=== PATIENT | female | born 1965 | race Caucasian/White ===

== ENCOUNTER → 2022-08-31 11:47 | Outpatient (BNVA) | payer OTHER, SELFPAY | PROVIDERS: PCP Family Medicine; Visit Provider Family Medicine | DX: Z00.00 Encounter for general adult medical examination without abnormal findings (principal); E03.9 Hypothyroidism, unspecified; E78.5 Hyperlipidemia, unspecified | CPT/HCPCS: 80053; 80061; 84443 ==

== ENCOUNTER 2022-11-06 07:57 | Emergency (ER) | payer OTHER, SELFPAY ==
[2022-11-06] VITALS (8 sets, daily range): BP systolic 140–148; BP diastolic 72–88; PULSE 59; RESP 16; TEMP 36.4; O2SAT 95–100; BMI 27.3
--- NOTE | 2022-11-06 08:15 | CTR_ITS ---
PROCEDURE INFORMATION: Exam: CT Abdomen And Pelvis Without Contrast Exam date and time: 11/06/2022 9:27 AM Age: 57 years old Clinical indication: Abdominal pain; Flank; Left; Additional info: Left flank pain TECHNIQUE: Imaging protocol: Computed tomography of the abdomen and pelvis without contrast. Radiation optimization: All CT scans at this facility use at least one of these dose optimization techniques: automated exposure control; mA and/or kV adjustment per patient size (includes targeted exams where dose is matched to clinical indication); or iterative reconstruction. COMPARISON: No relevant prior studies available. RADIATION DOSE METRICS: Total DLP (mGy-cm): 916.49 FINDINGS: Lungs: Minor atelectatic changes at the lung bases. Liver: Normal. No mass. Gallbladder and bile ducts: Normal. No calcified stones. No ductal dilation. Pancreas: Unremarkable. Main pancreatic duct is not significantly dilated. Spleen: Normal. No splenomegaly. Adrenal glands: Normal. No mass. Kidneys and ureters: Kidneys are unremarkable. No calculi or hydronephrosis detected. Stomach and bowel: Mild degree of retained stool throughout the large bowel otherwise GI tract is unremarkable. Appendix: Incidental small appendicoliths otherwise appendix is unremarkable. No evidence of acute appendicitis. Intraperitoneal space: Unremarkable. No free air. No significant fluid collection. Vasculature: Unremarkable. No abdominal aortic aneurysm. Lymph nodes: Unremarkable. No enlarged lymph nodes. Urinary bladder: Unremarkable as visualized. Reproductive: Endometrial canal appears mildly expanded and heterogeneous for patient's age that should be further evaluated on pelvic ultrasound. Bones/joints: Unremarkable. No acute fracture. Soft tissues: Unremarkable. CT/CT kidney stone [id number] IMPRESSION: 1. No acute findings within the abdomen or pelvis. 2. Nonspecific findings involving the endometrial cavity which in view of patient's age should be further investigated by means of nonemergent pelvic ultrasound exam.
--- NOTE | 2022-11-06 08:17 | ED_ITS ---
Documented by User: WU Patel 11/06/22 16:00 HPI - Abdominal Pain General: Chief Complaint: Abdominal Pain Stated Complaint: left flank pain Time Seen by Provider: 11/06/22 07:59 History of Present Illness: Patient is a 57-year-old female comes to the ED with left flank pain. Symptoms started approximately a week ago. Pain starts in the left lower back and radiates to the flank, left lower quadrant of the abdomen and towards left hip. She denies any injury or trauma to cause symptoms. She states that over the past couple days the pain is gotten worse and constant. Pain is located in the left flank region and then radiates down into the left hip and to left lower quadrant of abdomen. She rates the pain currently a 10 out of 10. Denies any worsening or improving factors. She endorses some mild dysuria a couple days ago but that has resolved. Endorses nausea but denies any episodes of emesis. Denies fevers, hematuria or bowel issues. Patient saw her primary care provider 3 days ago and they diagnosed her with a sciatica and she was started on some prednisone but that has not helped. Denies any past episodes of pain similar to this. Denies any kidney stone history. Associated Symptoms: Reports nausea; Denies chills, constipation, diarrhea, dysuria, fever(s), hematochezia, hematuria and vomiting Review of Systems Const: Denies: fever(s), chills or fatigue Eyes: Denies: change in vision or eye discomfort ENMT: Denies: throat pain, odynophagia, nasal discharge or nasal congestion Card: Denies: chest pain, palpitations, edema, swelling of feet/ankles, dyspnea on exertion or orthopnea Resp: Denies: dyspnea, productive cough or non-productive cough GI: Reports: nausea; Denies: abdominal pain, vomiting, diarrhea, constipation or hematochezia : Reports: flank pain (Left flank); Denies: dysuria or hematuria Musc: Denies: neck pain, back pain or extremity swelling Skin/Breast: Denies: rash or new lesions Neuro: Denies: headache(s), numbness in extremities or weakness in extremities PFS ED PFSH: Medical History Encounter for wellness examination Hyperlipidemia Hypothyroid Surgical History No pertinent past surgical history Family History Other Dementia Hypertension Social History Smoking and tobacco status: never smoked Alcohol intake: never Marital status: Physical Exam Const: COMMON NORMALS: no acute distress, patient oriented x3 and alert GENERAL APPEARANCE: cooperative and comfortable HENMT: COMMON NORMALS: normocephalic HEAD & SCALP: normocephalic MOUTH: Normal oral and palatal mucosa present THROAT: posterior oropharynx normal and uvula midline Neck/C-Spine: COMMON NORMALS: supple GENERAL: Yes normal visual inspection Resp: COMMON NORMALS: normal respiratory effort, No retractions, No use of accessory muscles and clear to auscultation bilaterally AUSCULTATION: clear to auscultation bilaterally Cardio: COMMON NORMALS: regular rate, regular rhythm, S1 normal heart sound present, S2 normal heart sound present, No gallops present (Cardio), No clicks present (Cardio), No murmurs present (Cardio) and Peripheral pulses 2+ throughout RATE: regular rate RHYTHM: regular rhythm HEART SOUNDS: S1 normal heart sound present and S2 normal heart sound present PERIPHERAL PULSES: Peripheral pulses 2+ throughout GI: COMMON NORMALS: Normal to inspection, nondistended, normoactive bowel sounds present, Soft to palpation, non-tender and no masses PALPATION: Yes Soft to palpation : COMMON NORMALS: Yes no CVA tenderness BLADDER/KIDNEY EXAM: Yes no CVA tenderness Back/Pelvis: COMMON NORMALS: no CVA tenderness Extremity: COMMON NORMALS: normal to inspection Neuro: COMMON NORMALS: patient oriented x3 SENSORIUM/ORIENTATION: Yes alert GAIT: Yes Normal gait present Skin: GENERAL SKIN EXAM: dry skin Course Vital Signs: Vital signs: Vital Signs Temperature 97.6 F 11/06/22 08:06 Pulse Rate 59 L 11/06/22 08:06 Respiratory Rate 16 11/06/22 08:06 Blood Pressure 140/88 11/06/22 08:30 Pulse Oximetry 95 11/06/22 12:00 Oxygen Delivery Me thod 11/06/22 08:06 MDM - Abdominal Pain Medical Decision Making Patient is a 57-year-old female comes to the ED with left flank pain. Symptoms started approximately a week ago. Pain starts in the left lower back and radiates to the flank, left lower quadrant of the abdomen and towards left hip. She denies any injury or trauma to cause symptoms. She states that over the past couple days the pain is gotten worse and constant. Pain is located in the left flank region and then radiates down into the left hip and to left lower qu adrant of abdomen. She rates the pain currently a 10 out of 10. Denies any worsening or improving factors. She endorses some mild dysuria a couple days ago but that has resolved. Endorses nausea but denies any episodes of emesis. Denies fevers, hematuria or bowel issues. Vitals are stable. Exam is benign. Labs are unremarkable. CT abdomen pelvis shows no acute findings but notes some nonspecific endometrial cavity thickening. Radiologist recommends doing an outpatient ultrasound for further evaluation. Patient was diagnosed with lumbar back pain and thickened endometrium. I placed order with case management for patient to be set up with an outpatient ultrasound of pelvis for further evaluation of endometrial thickening. Patient was discharged home with a prescription for a muscle relaxer and NSAID. Told to follow-up with PCP in the next week for reevaluation. Return to ED precautions given. Patient understood and agreed with plan. Lab Data I reviewed the patient's lab results. 11/06/22 10:26 11/06/22 10:26 Labs/Radiology: Radiology Impressions Abdomen/Pelvis CT 11/06/22 08:15 IMPRESSION: 1. No acute findings within the abdomen or pelvis. 2. Nonspecific findings involving the endometrial cavity which in view of patient's age should be further investigated by means of nonemergent pelvic ultrasound exam. Laboratory Results WBC 10.2 10^3/uL (4.0-10.0) H 11/06/22 10:26 RBC 4.49 10^6/uL (4.1-5.3) 11/06/22 10:26 Hgb 12.2 g/dL (11.5-15.3) 11/06/22 10:26 Hct 39.0 % (37.0-47.0) 11/06/22 10:26 MCV 86.9 fl (81-99) 11/06/22 10:26 MCH 27.2 pg (28.0-34.0) L 11/06/22 10:26 MCHC 31.3 g/dL (30.0-36.0) 11/06/22 10:26 RDW 14.6 % (12.1-15.1) 11/06/22 10:26 Plt Count 307 10^3/cmm (130-400) 11/06/22 10:26 MPV 10.1 fL (7.4-10.4) 11/06/22 10:26 Neut % (Auto) 72.8 % 11/06/22 10:26 Lymph % (Auto) 19.3 % 11/06/22 10:26 Harris % (Auto) 7.1 % 11/06/22 10:26 Eos % (Auto) 0.2 % 11/06/22 10:26 Baso % (Auto) 0.3 % 11/06/22 10:26 Neut # (Auto) 7.42 10^3/uL (1.8-7.7) 11/06/22 10:26 Lymph # (Auto) 2.0 10^3/uL (0.8-4.8) 11/06/22 10:26 Harris # (Auto) 0.7 10^3/uL (0.2-0.9) 11/06/22 10:26 Eos # (Auto) 0.0 10^3/uL (0.0-0.8) 11/06/22 10:26 Baso # (Auto) 0.0 10^3/uL (0.0-0.1) 11/06/22 10:26 Nucleated RBC % (auto) 0 % 11/06/22 10:26 Nucleated RBCs # 0.0 /100WBC 11/06/22 10:26 Sodium 142 mmol/L (136-145) 11/06/22 10:26 Potassium 3.3 mmol/L (3.5-5.1) L 11/06/22 10:26 Chloride 105 mmol/L (98-107) 11/06/22 10:26 Carbon Dioxide 26 mmol/L (22-29) 11/06/22 10:26 Anion Gap 14.3 (5-19) 11/06/22 10:26 BUN 15 mg/dL (6-20) 11/06/22 10:26 Creatinine 0.6 mg/dL (0.5-0.9) 11/06/22 10:26 GFR Calculation 102.7 mL/min (90-130) 11/06/22 10:26 Glucose 89 mg/dL (65-115) 11/06/22 10:26 Calculated Osmolality 294 mOsm/kg (285-295) 11/06/22 10:26 Calcium 8.9 mg/dL (8.5-10.5) 11/06/22 10:26 Total Bilirubin 0.2 mg/dL (0.15-1.2) 11/06/22 10:26 AST 12 U/L (0-32) 11/06/22 10:26 ALT 10 U/L (0-33) 11/06/22 10:26 Alkaline Phosphatase 83 U/L (35-105) 11/06/22 10:26 Total Protein 6.9 g/dL (6.6-8.7) 11/06/22 10:26 Albumin 4.1 g/dL (3.5-5.2) 11/06/22 10:26 Globulin 2.8 g/dL (1.3-4.6) 11/06/22 10:26 Lipase 12 U/L (13-60) L 11/06/22 10:26 Discharge Plan Discharge Patient Disposition: Home Clinical Impression: Lumbar back pain, Thickened endometrium Condition: Stable Prescriptions: New celecoxib 100 mg capsule 100 mg PO BID PRN (Reason: pain) Qty: 20 0RF methocarbamol 750 mg tablet 750 mg PO Q8H PRN (Reason: Back pain and muscle spasms) Qty: 20 0RF No Action prednisone 20 mg tablet 20 mg PO DAILY Qty: 5 0RF levothyroxine 25 mcg capsule 25 mcg PO DAILY Qty: 90 3RF Discharge Orders: Discharge ED (Routine); Ordered 11/06/22 Ordered By: Haseeb Borrero Referrals: Porfirio Lundy MD [Primary Care Provider] - Discharge Diet: Regular Discharge Activity: Increase activity as tolerated Activity Restrictions/Additional Instructions: Follow-up with medical provider as directed in the next 5 to 7 days. Case management should be contacting you in the next several days to set up an appointment for an outpatient ultrasound of pelvis. Take medications as prescribed. Return to the ER or your medical provider if condition worsens. Please read and understand discharge instructions. Thank you for choosing [facility] for your healthcare needs today. Please realize this is an emergency room and that we are providing you with a medical screening exam and this may not be complete and all inclusive of all the testing and or work up that you may need to determine your ailment or severity of your illness. It is very important that you follow up as instructed or that you return to the Emergency Department should you have concerns or if your condition changes or worsens in any way. Coding Level of Care Code ED Machine Operator Assistant for Chg Fwd Exam Comprehensive Documented by User: Fransisco Epperson DO 11/07/22 06:26 HPI - Abdominal Pain General: Chief Complaint: Abdominal Pain Stated Complaint: left flank pain Time Seen by Provider: 11/06/22 07:59 [facility] ED PFSH: Medical History Encounter for wellness examination Hyperlipidemia Hypothyroid Surgical History No pertinent past surgical history Family History Other Dementia Hypertension Social History Smoking and tobacco status: never smoked Alcohol intake: never Marital status: Course Vital Signs: Vital signs: Vital Signs Temperature 97.6 F 11/06/22 08:06 Pulse Rate 59 L 11/06/22 08:06 Respiratory Rate 16 11/06/22 08:06 Blood Pressure 140/88 11/06/22 08:30 Pulse Oximetry 95 11/06/22 12:00 Oxygen Delivery Me thod 11/06/22 08:06 MDM - Abdominal Pain Medical Decision Making Patient is a 57-year-old female comes to the ED with left flank pain. Symptoms started approximately a week ago. Pain starts in the left lower back and radiates to the flank, left lower quadrant of the abdomen and towards left hip. She denies any injury or trauma to cause symptoms. She states that over the past couple days the pain is gotten worse and constant. Pain is located in the left flank region and then radiates down into the left hip and to left lower quadrant of abdomen. She rates the pain currently a 10 out of 10. Denies any worsening or improving factors. She endorses some mild dysuria a couple days ago but that has resolved. Endorses nausea but denies any episodes of emesis. Denies fevers, hematuria or bowel issues. Vitals are stable. Exam is benign. Labs are unremarkable. CT abdomen pelvis shows no acute findings but notes some nonspecific endometrial cavity thickening. Radiologist recommends doing an outpatient ultrasound for further evaluation. Patient was diagnosed with lumbar back pain and thickened endometrium. I placed order with case management for p atient to be set up with an outpatient ultrasound of pelvis for further evaluation of endometrial thickening. Patient was discharged home with a prescription for a muscle relaxer and NSAID. Told to follow-up with PCP in the next week for reevaluation. Return to ED precautions given. Patient understood and agreed with plan. Chart reviewed and patient discussed with midlevel. Agree with assessment and plan. Lab Data 11/06/22 10:26 11/06/22 10:26 Labs/Radiology: Radiology Impressions Abdomen/Pelvis CT 11/06/22 08:15 IMPRESSION: 1. No acute findings within the abdomen or pelvis. 2. Nonspecific findings involving the endometrial cavity which in view of patient's age should be further investigated by means of nonemergent pelvic ultrasound exam. Laboratory Results WBC 10.2 10^3/uL (4.0-10.0) H 11/06/22 10:26 RBC 4.49 10^6/uL (4.1-5.3) 11/06/22 10:26 Hgb 12.2 g/dL (11.5-15.3) 11/06/22 10:26 Hct 39.0 % (37.0-47.0) 11/06/22 10:26 MCV 86.9 fl (81-99) 11/06/22 10:26 MCH 27.2 pg (28.0-34.0) L 11/06/22 10:26 MCHC 31.3 g/dL (30.0-36.0) 11/06/22 10:26 RDW 14.6 % (12.1-15.1) 11/06/22 10:26 Plt Count 307 10^3/cmm (130-400) 11/06/22 10:26 MPV 10.1 fL (7.4-10.4) 11/06/22 10:26 Neut % (Auto) 72.8 % 11/06/22 10:26 Lymph % (Auto) 19.3 % 11/06/22 10:26 Harris % (Auto) 7.1 % 11/06/22 10:26 Eos % (Auto) 0.2 % 11/06/22 10:26 Baso % (Auto) 0.3 % 11/06/22 10:26 Neut # (Auto) 7.42 10^3/uL (1.8-7.7) 11/06/22 10:26 Lymph # (Auto) 2.0 10^3/uL (0.8-4.8) 11/06/22 10:26 Harris # (Auto) 0.7 10^3/uL (0.2-0.9) 11/06/22 10:26 Eos # (Auto) 0.0 10^3/uL (0.0-0.8) 11/06/22 10:26 Baso # (Auto) 0.0 10^3/uL (0.0-0.1) 11/06/22 10:26 Nucleated RBC % (auto) 0 % 11/06/22 10:26 Nucleated RBCs # 0.0 /100WBC 11/06/22 10:26 Sodium 142 mmol/L (136-145) 11/06/22 10:26 Potassium 3.3 mmol/L (3.5-5.1) L 11/06/22 10:26 Chloride 105 mmol/L (98-107) 11/06/22 10:26 Carbon Dioxide 26 mmol/L (22-29) 11/06/22 10:26 Anion Gap 14.3 (5-19) 11/06/22 10:26 BUN 15 mg/dL (6-20) 11/06/22 10:26 Creatinine 0.6 mg/dL (0.5-0.9) 11/06/22 10:26 GFR Calculation 102.7 mL/min (90-130) 11/06/22 10:26 Glucose 89 mg/dL (65-115) 11/06/22 10:26 Calculated Osmolality 294 mOsm/kg (285-295) 11/06/22 10:26 Calcium 8.9 mg/dL (8.5-10.5) 11/06/22 10:26 Total Bilirubin 0.2 mg/dL (0.15-1.2) 11/06/22 10:26 AST 12 U/L (0-32) 11/06/22 10:26 ALT 10 U/L (0-33) 11/06/22 10:26 Alkaline Phosphatase 83 U/L (35-105) 11/06/22 10:26 Total Protein 6.9 g/dL (6.6-8.7) 11/06/22 10:26 Albumin 4.1 g/dL (3.5-5.2) 11/06/22 10:26 Globulin 2.8 g/dL (1.3-4.6) 11/06/22 10:26 Lipase 12 U/L (13-60) L 11/06/22 10:26 Discharge Plan Discharge Patient Disposition: Home Clinical Impression: Lumbar back pain, Thickened endometrium Condition: Stable Prescriptions: New celecoxib 100 mg capsule 100 mg PO BID PRN (Reason: pain) Qty: 20 0RF methocarbamol 750 mg tablet 750 mg PO Q8H PRN (Reason: Back pain and muscle spasms) Qty: 20 0RF No Action prednisone 20 mg tablet 20 mg PO DAILY Qty: 5 0RF levothyroxine 25 mcg capsule 25 mcg PO DAILY Qty: 90 3RF Discharge Orders: Discharge ED (Routine); Ordered 11/06/22 Ordered By: Haseeb Borrero Referrals: Porfirio Lundy MD [Primary Care Provider] - Discharge Diet: Regular Discharge Activity: Increase activity as tolerated Activity Restrictions/Additional Instructions: Follow-up with medical provider as directed in the next 5 to 7 days. Case management should be contacting you in the next several days to set up an appointment for an outpatient ultrasound of pelvis. Take medications as prescribed. Return to the ER or your medical provider if condition worsens. Please read and understand discharge instructions. Thank you for choosing [facility] for your healthcare needs today. Please realize this is an emergency room and that we are providing you with a medical screening exam and this may not be complete and all inclusive of all the testing and or work up that you may need to determine your ailment or severity of your illness. It is very important that you follow up as instructed or that you return to the Emergency Department should you have concerns or if your condition changes or worsens in any way. Coding Level of Care Code ED Machine Operator Assistant for Markell Fwmadhav Exam Comprehensive
[2022-11-06 10:31] LABS: Basophils % 0.3 %; Eosinophils % 0.2 %; Hemoglobin 12.2 g/dL (11.5-15.3); Lymphocytes % 19.3 %; Mean Corpuscular HGB Conc 31.3 g/dL (30.0-36.0); Mean Corpuscular Hemoglobin 27.2 pg (28.0-34.0); Mean Corpuscular Volume 86.9 fl (81-99); Mean Platelet Volume 10.1 fL (7.4-10.4); Monocytes # 0.7 10^3/uL (0.2-0.9); Monocytes % 7.1 %; Neutrophils # 7.42 10^3/uL (1.8-7.7); Neutrophils % 72.8 %; Nucleated Red Blood Cells % 0 %; Platelet Count 307 10^3/cmm (130-400); Red Blood Count 4.49 10^6/uL (4.1-5.3); Red Cell Distribution Width 14.6 % (12.1-15.1); White Blood Count 10.2 10^3/uL (4.0-10.0)
[2022-11-06 10:49] LABS: Alanine Aminotransferase 10 U/L (0-33); Albumin Level 4.1 g/dL (3.5-5.2); Alkaline Phosphatase 83 U/L (35-105); Anion Gap 14.3 (5-19); Aspartate Amino Transferase 12 U/L (0-32); Blood Urea Nitrogen 15 mg/dL (6-20); Calcium 8.9 mg/dL (8.5-10.5); Carbon Dioxide 26 mmol/L (22-29); Chloride 105 mmol/L (98-107); Globulin 2.8 g/dL (1.3-4.6); Glomerular Filtration Rate 102.7 mL/min (90-130); Glucose 89 mg/dL (65-115); Lipase 12 U/L (13-60); Osmolality Calculated 294 mOsm/kg (285-295); Potassium 3.3 mmol/L (3.5-5.1); Sodium 142 mmol/L (136-145); Total Bilirubin 0.2 mg/dL (0.15-1.2); Total Protein 6.9 g/dL (6.6-8.7)
[2022-11-06] MEDS: potassium chloride ER 20 mEq Tablet PO (11:39)
[2022-11-06] MEDS: orphenadrine 30 mg/mL Inj 2 mL 60 MG IVP (11:40)
[2022-11-06] MEDS: ketorolac 30 mg/mL INJ IVP (11:41)
--- NOTE | 2022-11-06 14:10 | DCPLANNER ---
Addendum entered by Meenu Diaz 11/17/22 14:27: Patient had a follow up appointment scheduled for 11.14.22 for a pelvic us - patient did attend appointment. Addendum entered by Meenu Diaz 11/07/22 11:18: Patient has an outpatient pelvic US scheduled for Monday, November 14, 2022 at 3:45. Centralized scheduling will call patient with appointment information. Original Note: manager pacu had message to schedule an outpatient pelvic us. manager pacu faxed signed order to centralized scheduling, who will call patient with appointment information.
== END 2022-11-06 12:30 | disposition home or self-care (01) ==
PROVIDERS: Emergency Provider Physician Assistant; PCP Family Medicine
DX: M54.50 Low back pain, unspecified (principal); R93.89 Abnormal findings on diagnostic imaging of other specified body structures; E78.5 Hyperlipidemia, unspecified
CPT/HCPCS: 74176; 80053; 83690; 85025; 96374; 96375; 99285; J1885; J2360

== ENCOUNTER 2022-12-12 15:50 | Outpatient (CLI) | payer OTHER, SELFPAY ==
--- NOTE | 2022-12-12 16:00 | US_ITS ---
WS: [id number] TRANSABDOMINAL PELVIC ULTRASOUND HISTORY: US of pelvis for abnormal CT COMPARISON: CT 11/06/2022 Uterus: 9.0 cm x 5.1 cm x 3.2 cm. Normal size and echogenicity. No fibroids are identified. Endometrium: 1.3 cm. Mildly prominent for age and menstrual cycle. No discrete mass identified. Patie nt refused transvaginal imaging for more optimal evaluation. Right ovary: 2.1 cm x 1.6 cm x 1.4 cm; no solid or cystic mass. Normal vascularity. Left ovary: Not visualized. No adnexal mass. No free fluid in the cul-de-sac. US/US pelvic complete* [id number] IMPRESSION: 1. Endometrium is mildly enlarged at 1.3 cm. Suboptimal evaluation as patient refused transvaginal imaging. No mass identified. 2. LEFT ovary is not visualized.
== END 2022-12-12 15:51 | disposition home or self-care (01) ==
LOC: RAD 15:55
PROVIDERS: PCP Family Medicine; Visit Provider Family Medicine
DX: R93.89 Abnormal findings on diagnostic imaging of other specified body structures (principal)
CPT/HCPCS: 76856